=== PATIENT | male | born 1945 | race Caucasian/White ===

== ENCOUNTER 2018-07-23 00:23 | Inpatient (IN) | payer MEDICARE, OTHER, SELFPAY ==
[2018-07-23] VITALS (7 sets, daily range): BP systolic 117–125; BP diastolic 65–85; PULSE 69–95; RESP 16–20; TEMP 36.3–37.8; O2SAT 90–98; BMI 27.5
--- NOTE | 2018-07-23 00:35 | ED.ABDPAIN ---
HPI - Abdominal Pain General Chief Complaint: Abdominal Pain Stated Complaint: left side abdominal swelling Time Seen by Provider: 07/23/18 00:28 Source: patient and family Mode of arrival: ambulatory Limitations: no limitations History of Present Illness HPI narrative: 72-year-old male with extensive cardiac history presents with his in the chief complaint of gradually worsening left-sided abdominal pain and swelling over the course of the afternoon. He has nausea but no vomiting. He denies any history of the same. He does have a history of reflux and continues to take Motrin for arthritis. He denies any chest pain or shortness of breath. He is not dizzy nor weak or lightheaded. His last normal bowel movement was this morning and he continues to pass gas. MD complaint: abdominal pain Onset (ago): hour(s) Pain Consistency: constant Location: [facility] Severity: moderate Quality: cramping and aching Radiation: back Migration to: no migration Relieving factors: nothing Exacerbating factors: movement Associated symptoms: nausea Treatments prior to arrival: NSAIDs Related Data Home Medications Medication Instructions Recorded Confirmed atorvastatin 40 mg PO BEDTIME 07/23/18 07/23/18 Allergies Allergy/AdvReac Type Severity Reaction Status Date / Time fentanyl Allergy Verified 07/23/18 00:33 Review of Systems Review of Systems All systems reviewed & are unremarkable except as noted in HPI and below Constitutional Denies chills, Denies fever(s), Denies lethargy and Denies weakness Eyes Denies change in vision, Denies eye discharge, Denies irritation and Denies loss of vision ENT Ears, Nose, Mouth, and Throat: Denies change in voice, Denies neck pain and Denies sore throat Cardiovascular Denies chest pain, Denies irregular heart rhythm, Denies lightheadedness, Denies palpitations, Denies dyspnea, Denies dyspnea on exertion and Denies orthopnea Respiratory Denies cough, Denies dyspnea, Denies dyspnea on exertion and Denies wheezing Gastrointestinal Gastrointestinal: Reports abdominal pain, Reports bloating, Denies change in bowel habits, Denies diarrhea, Reports nausea and Denies vomiting Genitourinary Denies hematuria, Denies flank pain, Denies urinary incontinence and Denies urinary urgency Musculoskeletal Denies neck pain Integumentary/Breasts Denies pruritus, Denies erythema, Denies rash and Denies wounds Neurologic Denies confusion, Denies loss of vision and Denies weakness Psychiatric Denies anxiety, Denies confusion, Denies depression, Denies homicidal ideation and Denies suicidal ideation Endocrine Denies palpitations Hematologic/Lymphatic Denies easy bruising Allergic/Immunologic Denies wheezing [facility] Medical History Obstructive sleep apnea of adult (Chronic) Snoring (Chronic) Ischemic heart disease (Chronic) Exam Narrative Exam Narrative: GENERAL: 72-year-old male visibly anxious and obviously in pain HEAD: Atraumatic. Normocephalic. No temporal or scalp tenderness. EYES: Pupils equal round and reactive. Extraocular motions intact. No scleral icterus. No injection or drainage. ENT: Nose without bleeding, purulent drainage or septal hematoma. Throat without erythema, tonsillar hypertrophy or exudate. Uvula midline. Airway patent. NECK: Trachea midline. No JVD or lymphadenopathy. Supple, nontender, no meningeal signs. CARDIOVASCULAR: Regular rate and rhythm without murmurs, gallops, or rubs. RESPIRATORY: Clear to auscultation. Breath sounds equal bilaterally. No wheezes, rales, or rhonchi. GASTROINTESTINAL: Firm, tender abdomen most notably on the left side. EXTREMITIES: No clubbing, cyanosis, or edema. No joint tenderness, effusion, or edema noted. BACK: Nontender without deformity or crepitance. No flank tenderness. NEURO: AOx3. SKIN: No rash or erythema. Initial Vital Signs Initial Vital Signs: Vital Signs Pulse Rate 69 07/23/18 00:32 Respiratory Rate 18 07/23/18 00:32 Blood Pressure 125/85 07/23/18 00:32 Pulse Oximetry 98 07/23/18 00:32 Course Orders Ordered: ED Orders 07/23/18 00:50 XR acute abdomen series Stat 07/23/18 01:05 Complete Blood Count AUTO DIFF Stat Comprehensive Metabolic Panel Stat Lipase Stat Type and Screen Stat 07/23/18 01:47 XR chest 1V Stat Sodium Chloride (Normal Saline 0.9%) 1,000 mls @ 150 mls/hr IV CONT ELIEL Last Admin: 07/23/18 01:17 Dose: 150 mls/hr Discontinued Medications Hydromorphone HCl (Dilaudid) 0.5 mg IV NOW ONE Stop: 07/23/18 00:50 Last Admin: 07/23/18 01:16 Dose: 0.5 mg Ondansetron HCl (Zofran) 4 mg IV NOW ONE Stop: 07/23/18 00:50 Last Admin: 07/23/18 01:17 Dose: 4 mg Reevaluation(s) Reevaluation #1: NG placed - nearly 700mL out, patient feeling much better Consultations Consultation #1: Dr. Capone happy to admit Consultation #2: attempted call to , but straight to voicemail Vital Signs - 8 hr 07/23/18 00:32 Pulse Rate 69 Respiratory Rate 18 Blood Pressure 125/85 Pulse Oximetry 98 MDM - Abdominal Pain Differential Diagnosis Differential diagnosis: Likely abdominal pain Medical Records Attestation: I reviewed the patient's medical records. Lab Data Attestation: I reviewed the patient's lab results. Result diagrams: 07/23/18 01:05 07/23/18 01:05 Lab Results 07/23/18 07/23/18 07/23/18 Range/Units 01:05 01:05 01:05 WBC 6.2 (4.5-11.0) X10^3/uL RBC 5.85 (4.5-5.9) X10^6/uL Hgb 17.6 H (13.5-17.5) g/dL Hct 51.5 (41-53) % MCV 88.0 (80-100) fL MCH 30.1 (26-34) PG MCHC 34.3 (30-36) % RDW 12.7 (11.6-14.8) % Plt Count 208 (150-400) X10^3/uL Neut % (Auto) 66.8 (50-75) % Lymph % (Auto) 16.6 L (25-40) % [place] % (Auto) 10.9 (3-14) % Eos % (Auto) 4.7 H (2-4) % Baso % (Auto) 1.0 (0-2) % Neut # (Auto) 4100 (7010-5718) /uL Sodium 138 (137-145) mmol/L Potassium 3.9 (3.4-5.1) mmol/L Chloride 98 (98-107) mmol/L Carbon Dioxide 31 (22-32) mmol/L BUN 15 (9-20) mg/dL Creatinine 0.80 (0.66-1.25) mg/dL Estimated GFR > 60.0 (>60) mL/min BUN/Creatinine Ratio 18.8 (6-22) Glucose 120 H (80-110) mg/dL Calcium 9.8 (8.4-10.2) mg/dL Total Bilirubin 0.7 (0.2-1.3) mg/dL AST 43 (17-59) IU/L ALT 45 (21-72) IU/L Alkaline Phosphatase 62 (38-126) U/L Total Protein 8.2 (6.3-8.2) g/dL Albumin 4.5 (3.5-5.0) g/dL Globulin 3.7 (1.7-4.1) g/dL Albumin/Globulin Ratio 1.2 (1.0-2.8) Lipase 83 (23-300) U/L Blood Type O Positive Antibody Screen Negative Imaging Data Abdominal x-ray: My impression: SBO - air fluid levels, gaseous distension of stomach Discharge Plan Departure Patient Disposition: Admitted As Inpatient Clinical Impression: Partial small bowel obstruction Admit Date/Time: 07/23/18 01:47 Admit Provider: Eusebia Capone
--- NOTE | 2018-07-23 00:50 | DI.RAD.S_ITS ---
PROCEDURE: XR ACUTE ABDOMEN SERIES INDICATIONS: Abdominal pain, bloating, Nausea TECHNIQUE: One view chest and two views of the abdomen were acquired. COMPARISON: None. FINDINGS: Surgical changes and devices: Median sternotomy wires. Chest: Lungs are clear. Heart size is normal. No pleural effusions. No pneumoperitoneum. Abdomen: Multiple dilated loops of small bowel noted. Loops of small bowel are dilated up to 4 cm in diameter. Scattered air-fluid levels are noted. Several of the air fluid levels at differential height. No suspicious calcifications. Visualized solid organ contours appear normal. Bones: No suspicious bony lesions. IMPRESSION: Findings compatible with small bowel obstruction. Dictated by: Yin Chacon MD, PhD on 07/23/2018 at 9:04 Approved by: Yin Chacon MD, PhD on 07/23/2018 at 9:05
[2018-07-23] MEDS: HYDROMORPHONE 1 MG INJ 0.5 MG IV (01:16)
[2018-07-23] MEDS: SODIUM CHLORIDE 0.9% 1,000 ML 150 ML IV (01:17)
[2018-07-23] MEDS: ONDANSETRON 4 MG/2 ML INJ IV (01:17)
[2018-07-23 01:25] LABS: Add Manual Diff / Slide Review NO; Eosinophils Percent Auto 4.7 % (2-4); Hematocrit 51.5 % (41-53); Hemoglobin 17.6 g/dL (13.5-17.5); Lymphocytes Percent Auto 16.6 % (25-40); Mean Corpuscular HGB Conc 34.3 % (30-36); Mean Corpuscular Hemoglobin 30.1 PG (26-34); Monocytes Percent Auto 10.9 % (3-14); Neutrophils Absolute Auto 4100 /uL (1500-7000); Neutrophils Percent Auto 66.8 % (50-75); Platelet Count 208 X10^3/uL (150-400); Red Blood Cell Count 5.85 X10^6/uL (4.5-5.9); Red Cell Distribution Width 12.7 % (11.6-14.8); White Blood Cell Count 6.2 X10^3/uL (4.5-11.0)
--- NOTE | 2018-07-23 01:47 | DI.RAD.S_ITS ---
PROCEDURE: XR CHEST 1V INDICATIONS: NG Placement TECHNIQUE: One view of the chest was acquired. COMPARISON: None. FINDINGS: Surgical changes and devices: NG tube projects across the GE junction. Cholecystectomy clips. Lungs and pleura: No pleural effusions or pneumothorax. Lungs are clear. Mediastinum: Mediastinal contours appear normal. Heart size is normal. Bones and chest wall: No suspicious bony lesions. Overlying soft tissues appear unremarkable. The dilated loops of small bowel noted in the visualized abdomen compatible with small bowel obstruction. IMPRESSION: NG tube projects across the GE junction. Dictated by: Yin Chacon MD, PhD on 07/23/2018 at 9:05 Approved by: Yin Chacon MD, PhD on 07/23/2018 at 9:06
[2018-07-23 01:52] LABS: Alanine Aminotransferase 45 IU/L (21-72); Albumin 4.5 g/dL (3.5-5.0); Albumin Globulin Ratio 1.2 (1.0-2.8); Alkaline Phosphatase 62 U/L (38-126); Aspartate Aminotransferase 43 IU/L (17-59); BUN Creatinine Ratio 18.8 (6-22); Bilirubin Total 0.7 mg/dL (0.2-1.3); Blood Urea Nitrogen 15 mg/dL (9-20); Calcium 9.8 mg/dL (8.4-10.2); Carbon Dioxide 31 mmol/L (22-32); Chloride 98 mmol/L (98-107); Estimated Glomerular Filt Rate > 60.0 mL/min (>60); Globulin 3.7 g/dL (1.7-4.1); Glucose 120 mg/dL (80-110); HEMOLYSIS < 15 (0-50); Lipase 83 U/L (23-300); Potassium 3.9 mmol/L (3.4-5.1); Sodium 138 mmol/L (137-145); Total Protein 8.2 g/dL (6.3-8.2)
--- NOTE | 2018-07-23 02:19 | PC.NURSE ---
pt tolerated ng placment after 2 attempts. ng secured with nose tape and saftey pin to gown. 500ml of yellowish foamy fluid returned. NG advanced to 60cm wendi.
--- NOTE | 2018-07-23 02:21 | PC.NURSE ---
NS to continue in acute care.
[2018-07-23] MEDS: SODIUM CHLORIDE 0.9% 1,000 ML 125 ML IV ×3 (02:57→18:05)
[2018-07-23] MEDS: HYDROMORPHONE PCA 6 MG/30 ML PCA.VIAL IV ×2 (06:33→14:30)
--- NOTE | 2018-07-23 09:20 | CM.DANOTE ---
Discharge Planning/Care Management DCP: assessment: case received, EMR reviewed and met with pt and his Jane. Introduced self and role. Pt is a 72 year old male who admited early this mornin to care of [facility]. Only physician note currently available is ER report. Payer: Medicare and [employer]. Pt is found lying in bed, NG to suction in place and draining dark material. Pt and Jane are waiting to see Dr. Capone. At the moment pt's primary concern is his drivers license and insurance cards. He says he gave them to someone in admitting last night and was told copies needed to be made and scanned and that she would return them to him later. He never got the copies. His has talked with admitting and the card have not yet been located. JUDSON Calix is updated and is following up with ER staff as well as Admitting staff. Updates to follow. MAGALY Maurer is updated. CM Discharge Assessment Start: 07/23/18 09:13 Freq: Status: Active Protocol: Document 07/23/18 09:13 ITV (Rec: 07/23/18 09:20 ITV [id number]) Discharge Planning Assessment Advance Directives? Yes History Provided By Patient Family Member Prior Living Arrangements House Household Members spouse Whiteboard Updated in Patient Room with Yes name and ext. # of Photographic Reproduction Technician Review Status In Process Next Review Type Continued Stay Review
--- NOTE | 2018-07-23 11:29 | PC.NURSE ---
Pt denies pain but reports mild tenderness to abdm. NG tube in place in left nare emptying green gastric liquid. Pt's has expressed concern about his chronic GERD saying that he has not been in for an EGD. She strongly feels that he should have one to evaluate for possible problems with his esophagus and gastric ulcers independent of his current problem.
--- NOTE | 2018-07-23 13:27 | PC.NURSE ---
NG Tube d/c'd at approx. 13:[address] Capone. Pt. tollerated well. He has requested usman aubrey to drink and has been ok'd for clear liquids. Tele d/c'd.
--- NOTE | 2018-07-23 15:38 | P.HP_ITS ---
History of Present Illness Date Patient Seen: 07/23/18 Time Patient Seen: 12:32 Chief complaint: left side abdominal swelling Narrative: 72-year-old gentleman with an extensive cardiac history who presented to the emergency room with several hours of increasing left-sided abdominal distention and discomfort. He complained of nausea but no vomiting. He reports that he has had a cold for a week or so that he caught from his . He has had a low-grade temp at home and just generally has not felt well. He says it ?really set me back?. He denies any diarrhea. He was seen in the emergency room and had a CT scan suggestive of small-bowel obstruction. He was admitted to my service for care. Since his admission, he has passed an enormous amount of flatus. In fact, he has been passing flatus all night and all day yesterday. He reports no less than 20 episodes of flatus since he woke up this morning. He reports that his belly feels much better. He is quite thirsty and is complaining of sore throat. He has an NG tube in place that was put there in the emergency room last evening but has drained very little thick fluid. He denies any nausea currently. He has not had any nausea since being admitted to the hospital. Mr. Ibanez has had an appendectomy and cholecystectomy. He has also had a five-vessel coronary artery bypass procedure. He reports his last colonoscopy was about a year or year and half ago and was done at our facility. Patient History Medical History Obstructive sleep apnea of adult (Chronic) Snoring (Chronic) Ischemic heart disease (Chronic) Family & Social History Family History: Reviewed 07/23/18 by Eusebia Capone MD Social History: household members spouse Prior Living Arrangements House Safety & Behavioral: Feels Safe in Current Yes Environment Been Physically Hurt or No Threatened By a Person Suicidal Ideation Description None Tobacco & Substance use: Tobacco type cigars Smoking Status Current some day smoker alcohol intake current alcohol intake frequency 0-2 drinks per day Substance Use Type does not use Meds Home Medications Medication Instructions Recorded Confirmed Type atorvastatin 40 mg PO BEDTIME 07/23/18 07/23/18 History Allergies Allergy/AdvReac Type Severity Reaction Status Date / Time fentanyl Allergy Verified 07/23/18 00:33 Review of Systems Review of Systems All systems reviewed & are unremarkable except as noted in HPI and below Exam Vital Signs (past 8 hours): - 07/23/18 07:33 07/23/18 13:30 Temperature 99.5 F 100.1 F H Pulse Rate 91 H 90 Respiratory Rate 20 18 Blood Pressure 117/75 124/65 Pulse Oximetry 93 90 L Oxygen Delivery Method Room Air Oxygen Flow Rate 0 Narrative Exam Narrative: 72-year-old gentleman in no obvious distress. He reports he feels much better than he did at the time of admission. He is gargling salt water at the time of my examination due to a sore throat. HEENT: Normocephalic and atraumatic, pupils equal round reactive to light accommodation with anicteric sclera Lungs: Clear to auscultation bilaterally Heart: Regular rate and rhythm without murmur rub or gallop Abdomen: Soft, nontender even to deep palpation, active bowel sounds. Some tympany to percussion. No peritoneal signs. Well-healed abdominal incisions are noted. Extremities: Warm and well perfused. No evidence of peripheral edema. Objective Labs Result Diagrams: 07/23/18 01:05 07/23/18 01:05 Labs: Laboratory Results - last 24 hr 07/23/18 07/23/18 07/23/18 01:05 01:05 01:05 WBC 6.2 RBC 5.85 Hgb 17.6 H Hct 51.5 MCV 88.0 MCH 30.1 MCHC 34.3 RDW 12.7 Plt Count 208 Neut % (Auto) 66.8 Lymph % (Auto) 16.6 L [place] % (Auto) 10.9 Eos % (Auto) 4.7 H Baso % (Auto) 1.0 Neut # (Auto) 4100 Sodium 138 Potassium 3.9 Chloride 98 Carbon Dioxide 31 BUN 15 Creatinine 0.80 Estimated GFR > 60.0 BUN/Creatinine Ratio 18.8 Glucose 120 H Calcium 9.8 Total Bilirubin 0.7 AST 43 ALT 45 Alkaline Phosphatase 62 Total Protein 8.2 Albumin 4.5 Globulin 3.7 Albumin/Globulin Ratio 1.2 Lipase 83 Blood Type O Positive Antibody Screen Negative Assessment & Plan Plan: Assessment/Plan Narrative: 72-year-old gentleman with extensive cardiac history, and upper respiratory infection, and gaseous distension of his bowel. We will remove his NG tube and start a clear liquid diet. Analgesics for fever, sore throat, and upper respiratory symptoms. Likely advance his diet in the morning. Quality VTE Deep Vein Thrombosis/Pulmonary Embolism Present on Admission: No
[2018-07-23] MEDS: ATORVASTATIN 20 MG TABLET 40 MG PO (21:09)
--- NOTE | 2018-07-24 | DI.RAD.S_ITS ---
PROCEDURE: XR ACUTE ABDOMEN SERIES INDICATIONS: Bowel obstruction TECHNIQUE: One view chest and two views of the abdomen were acquired. COMPARISON: [facility], , XR ACUTE ABDOMEN SERIES, 07/23/2018, 0:53. FINDINGS: Surgical changes and devices: Sternotomy wires and surgical clips projecting in the upper abdomen Chest: Lungs are clear. Heart size is normal. No pleural effusions. No pneumoperitoneum. Abdomen: Mildly prominent small bowel loops measuring up to 3.4 cm although no definite transition point and there is gas within the rectal vault. Bones: No suspicious bony lesions. Mild bilateral hip degeneration IMPRESSION: No definite bowel obstruction although prominent left-sided small bowel loops remain. Overall the appearance is improved since yesterday. Dictated by: Michael Jacques M.D. on 07/24/2018 at 9:07 Approved by: Michael Jacques M.D. on 07/24/2018 at 9:09
[2018-07-24 00:35] VITALS: BP 107/56; PULSE 91; RESP 16; TEMP 36.9; O2SAT 92
[2018-07-24 05:56] LABS: Add Manual Diff / Slide Review NO; Basophils Percent Auto 0.5 % (0-2); Eosinophils Percent Auto 7.9 % (2-4); Hematocrit 44.3 % (41-53); Hemoglobin 15.1 g/dL (13.5-17.5); Lymphocytes Percent Auto 26.8 % (25-40); Mean Corpuscular Hemoglobin 30.1 PG (26-34); Mean Corpuscular Volume 88.5 fL (80-100); Monocytes Percent Auto 13.6 % (3-14); Neutrophils Absolute Auto 2200 /uL (1500-7000); Neutrophils Percent Auto 51.2 % (50-75); Platelet Count 176 X10^3/uL (150-400); Red Blood Cell Count 5.01 X10^6/uL (4.5-5.9); Red Cell Distribution Width 12.8 % (11.6-14.8); White Blood Cell Count 4.4 X10^3/uL (4.5-11.0)
[2018-07-24 06:00] VITALS: BP 132/65; PULSE 77; RESP 18; TEMP 36.6; O2SAT 94
[2018-07-24 06:00] LABS: BUN Creatinine Ratio 12.5 (6-22); Blood Urea Nitrogen 10 mg/dL (9-20); Calcium 8.5 mg/dL (8.4-10.2); Carbon Dioxide 31 mmol/L (22-32); Chloride 99 mmol/L (98-107); Estimated Glomerular Filt Rate > 60.0 mL/min (>60); Glucose 94 mg/dL (80-110); HEMOLYSIS < 15 (0-50); Potassium 4.1 mmol/L (3.4-5.1); Sodium 136 mmol/L (137-145)
[2018-07-24] MEDS: SODIUM CHLORIDE 0.9% 1,000 ML 75 ML IV (06:13)
[2018-07-24 08:59] VITALS: BP 123/72; PULSE 86; RESP 18; TEMP 36.7; O2SAT 96
--- NOTE | 2018-07-24 11:19 | PC.NURSE ---
Pt reports that he had a BM last night. This morning he c/o itchy skin to his back where he has a red papular rash. It appears to be possibly heat rash related or a viral rash possibly r/t to his head cold.
[2018-07-24] MEDS: INFLUENZA VACCINE 0.5 ML SYRINGE IM (11:42)
[2018-07-24 12:06] VITALS: BP 125/73; PULSE 85; RESP 16; O2SAT 94
--- NOTE | 2018-07-24 12:12 | PM.DS.1 ---
History of Present Illness Chief complaint: left side abdominal swelling Narrative: 72-year-old gentleman with an extensive cardiac history who presented to the emergency room with several hours of increasing left-sided abdominal distention and discomfort. He complained of nausea but no vomiting. He reports that he has had a cold for a week or so that he caught from his . He has had a low-grade temp at home and just generally has not felt well. He says it ?really set me back?. He denies any diarrhea. He was seen in the emergency room and had a CT scan suggestive of small-bowel obstruction. He was admitted to my service for care. Since his admission, he has passed an enormous amount of flatus. In fact, he has been passing flatus all night and all day yesterday. He reports no less than 20 episodes of flatus since he woke up this morning. He reports that his belly feels much better. He is quite thirsty and is complaining of sore throat. He has an NG tube in place that was put there in the emergency room last evening but has drained very little thick fluid. He denies any nausea currently. He has not had any nausea since being admitted to the hospital. Mr. Ibanez has had an appendectomy and cholecystectomy. He has also had a five-vessel coronary artery bypass procedure. He reports his last colonoscopy was about a year or year and half ago and was done at our facility. Discharge Providers Date of admission: 07/23/18 01:47 Discharge provider: Eusebia Capone MD Discharge Date: 07/24/18 Summary Discharge Diagnosis: Viral enteritis Hospital Course: Mr. Ibanez was admitted to the acute care floor and began to improve almost immediately. He developed a sore throat on the 1st day after admission but that has since resolved. He was noted to have low-grade temp but that has also resolved. Currently he is eating regular diet, he has normal bowel function, and he denies any discomfort. He has developed a macular rash covering his back that is most consistent with viral infection. He will be discharged to his home in the care of his family with prescriptions for Atarax and Benadryl cream. He can follow up with his primary care physician. Status at Discharge Cognitive/behavioral status at discharge: Normal Functional status at discharge: independent ambulation Overall status at discharge: patient is back to baseline Time Spent with Patient Less than 30 minutes Exam Vital Signs (past 8 hours): - 07/24/18 06:00 07/24/18 08:59 07/24/18 12:06 Temperature 97.8 F 98.0 F Pulse Rate 77 86 85 Respiratory Rate 18 18 16 Blood Pressure 132/65 123/72 125/73 Pulse Oximetry 94 96 94 Oxygen Delivery Method Room Air Oxygen Flow Rate 0 Objective Labs Result Diagrams: 07/24/18 05:35 07/24/18 05:35 Labs: Laboratory Results - last 24 hr 07/24/18 07/24/18 05:35 05:35 WBC 4.4 L RBC 5.01 Hgb 15.1 Hct 44.3 MCV 88.5 MCH 30.1 MCHC 34.0 RDW 12.8 Plt Count 176 Neut % (Auto) 51.2 Lymph % (Auto) 26.8 [place] % (Auto) 13.6 Eos % (Auto) 7.9 H Baso % (Auto) 0.5 Neut # (Auto) 2200 Sodium 136 L Potassium 4.1 Chloride 99 Carbon Dioxide 31 BUN 10 Creatinine 0.80 Estimated GFR > 60.0 BUN/Creatinine Ratio 12.5 Glucose 94 Calcium 8.5 Discharge Plan Discharge Plan Patient Disposition: Home Discharge Med Rec/Prescriptions Prescriptions: New hydroxyzine pamoate 50 mg capsule 50 mg PO QID PRN (Reason: itching) Qty: 30 RF: 0 diphenhydramine-zinc acetate [Benadryl Extra Strength] 2-0.1 % cream 1 applictn TOP QID Qty: 35 RF: 0 hydroxyzine pamoate 50 mg capsule 50 mg PO QID PRN (Reason: itching) Qty: 30 RF: 0 diphenhydramine-zinc acetate [Benadryl Itch Cooling] 2-0.1 % aerosol,spray 1 spray TOP QID PRN (Reason: skin irritation) Qty: 59 RF: 0 Continue atorvastatin 40 mg Tablet 40 mg PO BEDTIME RF: 0 Provider Discharge Instructions Diet: Diet as Tolerated Visit Report/Discharge Packet Instructions: Small Bowel Obstruction, DI for Heart Failure Visit Report Forms: Congestive Heart Failure, Stroke Signs & Symptoms Discharge Data Attending Provider: Eusebia Capone Admit Date/Time: 07/23/18 01:47 Discharges patient from system. Discharge Date/Time: 07/24/18 13:43 Quality VTE Deep Vein Thrombosis/Pulmonary Embolism Present on Admission: No
== END 2018-07-24 13:43 | disposition home or self-care (01) | DRG 392 ==
LOC: ED 01:37 → AC 01:48
PROVIDERS: Admitting Provider Surgery; Emergency Provider Emergency Medicine; Visit Provider Surgery
DX: A08.4 Viral intestinal infection, unspecified (principal); J06.9 Acute upper respiratory infection, unspecified; G47.33 Obstructive sleep apnea (adult) (pediatric); I25.10 Atherosclerotic heart disease of native coronary artery without angina pectoris; F17.200 Nicotine dependence, unspecified, uncomplicated
CPT/HCPCS: 36415; 36591; 71045; 74022; 80048; 80053; 83690; 85025; 86850; 86900; 86901; 90471; 90656; 94762; 96361; 96374; 96375; 99222; 99238; 99283; 99284; J1170; J2405; Q2038

== ENCOUNTER → 2018-09-17 07:36 | Outpatient (CLI) | payer MEDICARE, OTHER, SELFPAY ==
[2018-07-23 02:36] VITALS: BMI 27.5
--- NOTE | 2018-09-17 | DI.CT.S_ITS ---
PROCEDURE: CT ABDOMEN PELVIS W CON INDICATIONS: LEFT LOWER QUADRANT PAIN x 3 MONTHS TECHNIQUE: After the administration of oral and intravenous contrast, 5 mm thick sections acquired from the diaphragms to the symphysis. 5 mm thick coronal and sagittal reformats were performed. For radiation dose reduction, the following was used: automated exposure control, adjustment of mA and/or kV according to patient size. COMPARISON: None. FINDINGS: Image quality: Excellent. ABDOMEN: Lung bases: Lung bases are clear. Heart size is normal. There is calcification of the coronary vasculature. Solid organs: Liver is normal in size and enhancement. Gallbladder is surgically absent. Biliary system is non-dilated. Pancreas enhances normally. Spleen is normal in size and enhancement. No adrenal nodules. Kidneys are normal in size and enhancement, without hydronephrosis. Peritoneum and bowel: Stomach, small bowel, and colon loops are normal in caliber and wall thickness. No free fluid or air. Nodes and vessels: No retroperitoneal or mesenteric adenopathy. IVC is within normal limits. There is mild infrarenal abdominal aortic aneurysmal dilatation measuring 31 mm. There is aneurysmal dilatation of the left internal iliac artery measuring 17 mm. Miscellaneous: No ventral hernias. PELVIS: Genitourinary: The urinary bladder is decompressed. Miscellaneous: No inguinal hernias or adenopathy. Bones: No suspicious bony lesions. No vertebral body compression fractures. IMPRESSION: 1. No acute process. 2. Coronary artery disease. 3. Mild aneurysmal dilatation of the abdominal aorta; annual sonographic surveillance is recommended. 4. 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 Dictated by: Regla Martinez M.D. on 09/17/2018 at 9:59 Approved by: Regla Martinez M.D. on 09/17/2018 at 10:03
== END ==
PROVIDERS: PCP Family Medicine; Visit Provider Family Medicine
DX: R10.32 Left lower quadrant pain (principal); I71.4 Abdominal aortic aneurysm, without rupture; I72.3 Aneurysm of iliac artery; I25.10 Atherosclerotic heart disease of native coronary artery without angina pectoris; Z95.1 Presence of aortocoronary bypass graft
CPT/HCPCS: 74177; Q9967

== ENCOUNTER 2018-11-09 13:25 | Emergency (ER) | payer MEDICARE, OTHER, SELFPAY ==
[2018-07-23 02:36] VITALS: BMI 27.5
[2018-11-09 13:45] VITALS: BP 99/70; PULSE 86; RESP 18; TEMP 36.6; O2SAT 94; BMI 26.9
--- NOTE | 2018-11-09 13:59 | ED_ITS ---
HPI - Skin/Abscess/Foreign Bdy <VENKATESH Knight - Last Filed: 11/09/18 14:28> General Chief complaint: Skin/Abscess/Foreign Body Stated complaint: Thinks he has shingles Time Seen by Provider: 11/09/18 13:53 Source: patient Mode of arrival: ambulatory Limitations: no limitations History of Present Illness HPI narrative: rash started suddenly about 2 days ago, only one side of his ches t, it miller and tingles, had chickenpox as child and thinks the rash is shingles complaint: rash Onset (ago): day(s) (2) Location: chest (R side) Severity: mild Quality: burning Pain Consistency: constant Relieving factors: none Exacerbating factors: none Associated symptoms: denies other symptoms Treatments prior to arrival: none Related Data Home Medications Medication Instructions Recorded Confirmed atorvastatin 40 mg PO BEDTIME 07/23/18 07/23/18 Previous Rx's Medication Instructions Recorded diphenhydramine-zinc acetate 1 applictn TOP QID #35 gram 07/24/18 [Benadryl Extra Strength] diphenhydramine-zinc acetate 1 spray TOP QID PRN #59 ml 07/24/18 [Benadryl Itch Cooling] hydroxyzine pamoate 50 mg PO QID PRN #30 cap 07/24/18 hydroxyzine pamoate 50 mg PO QID PRN #30 cap 07/24/18 acyclovir 800 mg PO 5XD #30 tab 11/09/18 ibuprofen 800 mg PO TID PRN #20 tab 11/09/18 Allergies Allergy/AdvReac Type Severity Reaction Status Date / Time fentanyl Allergy Insomnia Verified 11/09/18 13:51 Review of Systems <VENKATESH Knight - Last Filed: 11/09/18 14:28> Review of Systems ROS Unobtainable: All systems reviewed & are unremarkable except as noted in HPI and below Constitutional Reports as per HPI Eyes Denies eye discharge, Denies irritation and Denies itchy eyes ENT Ears, Nose, Mouth, and Throat: Denies nasal congestion, Denies nasal discharge and Denies neck pain Cardiovascular Denies dyspnea Respiratory Denies dyspnea Musculoskeletal Denies abnormal gait, Denies back pain, Denies myalgias, Denies arthralgias, Denies muscle weakness and Denies neck pain Integumentary/Breasts Reports as per HPI and Reports rash Neurologic Denies abnormal gait Allergic/Immunologic Denies itchy eyes PFSH <VENKATESH Knight - Last Filed: 11/09/18 14:28> Medical History Obstructive sleep apnea of adult (Chronic) Snoring (Chronic) Ischemic heart disease (Chronic) Social History household members: spouse Smoking Status: Current some day smoker alcohol intake: current Social History household members: spouse Smoking Status: Current some day smoker alcohol intake: current Exam <VENKATESH Knight - Last Filed: 11/09/18 14:28> Initial Vital Signs Initial Vital Signs: Vital Signs Temperature 97.8 F 11/09/18 13:45 Pulse Rate 86 11/09/18 13:45 Respiratory Rate 18 11/09/18 13:45 Blood Pressure 99/70 11/09/18 13:45 Pulse Oximetry 94 11/09/18 13:45 Const General: cooperative, healthy appearing, comfortable, well developed and well groomed Orientation: alert, awake and oriented x3 HENMT Head: normal to inspection and normocephalic Ears: hearing grossly normal bilaterally Nose: external nose normal Face and sinus: normal facial exam Eyes General: appearance normal, both eyes and all related structures Visual Milner: normal visual milner by confrontation Eyelids: eyelids normal Pupils: PERRL Neck Neck: normal visual inspection, full ROM and trachea midline Resp Effort & Inspection: normal respiratory effort and able to speak in complete sentences Auscultation: clear to auscultation bilaterally Cardio Rate: regular rate Rhythm: regular rhythm Heart Sounds: S1 normal and S2 normal Back/Spine/Pelvis Back: normal to inspection Cervical Spine: cervical ROM normal Thoracic/Lumbar Spine: thoraco-lumbar ROM normal Skin General: no rashes or lesions noted, elasticity normal and turgor normal Rashes: rashes noted (R side of upper chest along sternum, erythema, vesicles, unilateral) Neuro General: alert, awake and oriented x3 Cranial Nerves: CN's II-XI intact bilaterally Cognition: normal cognition Speech: speech normal Motor: muscle tone normal throughout Sensory Exam: no sensory deficits noted Extrem General: normal to inspection, full ROM, capillary refill normal and limp Right upper extremity: normal to inspection and full ROM Left upper extremity: normal to inspection and full ROM Right lower extremity: normal to inspection and full ROM Left lower extremity: normal to inspection and full ROM Psych Appearance: grossly normal and well kempt Mental Status: mental status grossly normal Mood: congruent mood Affect: normal affect Attitude: cooperative Thought Process: normal Thought Content: normal Judgment: judgment good <Nahed Monteiro DO - Last Filed: 11/09/18 19:22> Initial Vital Signs Initial Vital Signs: Vital Signs Temperature 97.8 F 11/09/18 13:45 Pulse Rate 86 11/09/18 13:45 Respiratory Rate 18 11/09/18 13:45 Blood Pressure 99/70 11/09/18 13:45 Pulse Oximetry 94 11/09/18 13:45 Course <VENKATESH Knight - Last Filed: 11/09/18 14:28> Vital Signs - 8 hr 11/09/18 13:45 Temperature 97.8 F Pulse Rate 86 Respiratory Rate 18 Blood Pressure 99/70 Pulse Oximetry 94 <Nahed Monteiro DO - Last Filed: 11/09/18 19:22> Vital Signs - 8 hr 11/09/18 13:45 Temperature 97.8 F Pulse Rate 86 Respiratory Rate 18 Blood Pressure 99/70 Pulse Oximetry 94 MDM - Skin/Abscess/Foreign Bdy <VENKATESH Knight - Last Filed: 11/09/18 14:28> Differential Diagnosis Likely abscess of skin or subcutaneous tissue, viral exanthem, urticaria, herpes zoster, allergic reaction to drug, cellulitis, eczema, insect bites, impetigo and contact dermatitis Discharge Plan Departure Patient Disposition: Home Clinical Impression: Shingles Qualifiers: Herpes zoster complications: without complications Qualified Code(s): B02.9 - Zoster without complications Discharge Date/Time: 11/09/18 14:13 Interventions: ED Discharge Assessment Last Done: 11/09/18 14:11 Instructions: Shingles, DI for Shingles Prescriptions: New ibuprofen 800 mg tablet 800 mg PO TID PRN (Reason: pain) Qty: 20 RF: 0 acyclovir 800 mg tablet 800 mg PO 5XD Qty: 30 RF: 0 No Action atorvastatin 40 mg Tablet 40 mg PO BEDTIME RF: 0 hydroxyzine pamoate 50 mg capsule 50 mg PO QID PRN (Reason: itching) Qty: 30 RF: 0 diphenhydramine-zinc acetate [Benadryl Extra Strength] 2-0.1 % cream 1 applictn TOP QID Qty: 35 RF: 0 hydroxyzine pamoate 50 mg capsule 50 mg PO QID PRN (Reason: itching) Qty: 30 RF: 0 diphenhydramine-zinc acetate [Benadryl Itch Cooling] 2-0.1 % aerosol,spray 1 spray TOP QID PRN (Reason: skin irritation) Qty: 59 RF: 0 Referrals: Jef Skelton MD [Primary Care Provider] - (follow up in 3-5 days for recheck) <Nahed Monteiro DO - Last Filed: 11/09/18 19:22> Cosign ED Attending Cosignature Attestation: I was immediately available in the department for consultation. This documentation has been reviewed and I agree with assessment and plan. Supervised by Nahed Monteiro DO
== END 2018-11-09 14:13 | disposition home or self-care (01) ==
PROVIDERS: Emergency Provider Nurse Practitioner; PCP Family Medicine
DX: B02.9 Zoster without complications (principal)
CPT/HCPCS: 99282; 99283

== ENCOUNTER 2019-03-02 10:19 | Emergency (ER) | payer MEDICARE, OTHER, SELFPAY ==
[2018-07-23 02:36] VITALS: BMI 27.5
[2019-03-02] VITALS (9 sets, daily range): BP systolic 108–131; BP diastolic 61–76; PULSE 68–81; RESP 17–19; TEMP 36.6; O2SAT 94–97
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
[2019-03-02 11:20] LABS: Add Manual Diff / Slide Review NO; Basophils Absolute Auto 0 /uL (0-100); Basophils Percent Auto 0.7 % (0-2); Eosinophils Absolute Auto 100 /uL (0-450); Hematocrit 49.1 % (41-53); Hemoglobin 16.7 g/dL (13.5-17.5); Lymphocytes Absolute Auto 900 /uL (1100-4500); Lymphocytes Percent Auto 20.5 % (25-40); Mean Corpuscular Hemoglobin 30.2 PG (26-34); Mean Corpuscular Volume 88.7 fL (80-100); Monocytes Absolute Auto 400 /uL (0-900); Neutrophils Absolute Auto 3100 /uL (1500-7000); Neutrophils Percent Auto 67.8 % (50-75); Platelet Count 267 X10^3/uL (150-400); Red Blood Cell Count 5.53 X10^6/uL (4.5-5.9); White Blood Cell Count 4.6 X10^3/uL (4.5-11.0)
--- NOTE | 2019-03-02 11:22 | DI.CT.S_ITS ---
PROCEDURE: CT HEAD/BRAIN WO CON INDICATIONS: tia TECHNIQUE: Noncontrast 4.5 mm thick angled axial sections acquired from the foramen magnum to the vertex, with coronal and sagittal reformats. For radiation dose reduction, the following was used: automated exposure control, adjustment of mA and/or kV according to patient size. COMPARISON: None. FINDINGS: Image quality: Excellent. CSF spaces: Basal cisterns are patent. No extra-axial fluid collections. The ventricles are symmetric in size and shape. Brain: No intracranial bleeds or masses. There is cerebral volume loss for age, with resultant ventricular and sulcal prominence. There are periventricular and deep white matter chronic small vessel ischemic changes. There is intracranial internal carotid artery atherosclerosis. Skull and face: Calvarium and visualized facial bones appear intact, without suspicious lesions. Sinuses: Visualized sinuses and mastoids are clear. IMPRESSION: Unremarkable noncontrast head CT for age. If there is strong clinical suspicion for an acute stroke, please consider an MRI for further evaluation, as it is more sensitive (assuming that there is no contraindication to MRI). Dictated by: Tu Yen M.D. on 03/02/2019 at 10:32 Approved by: Tu Yen M.D. on 03/02/2019 at 10:33
[2019-03-02 11:26] LABS: Alanine Aminotransferase 32 IU/L (21-72); Albumin 4.2 g/dL (3.5-5.0); Albumin Globulin Ratio 1.3 (1.0-2.8); Alkaline Phosphatase 49 U/L (38-126); Aspartate Aminotransferase 35 IU/L (17-59); Bilirubin Total 0.7 mg/dL (0.2-1.3); Blood Urea Nitrogen 14 mg/dL (9-20); Calcium 9.3 mg/dL (8.4-10.2); Carbon Dioxide 29 mmol/L (22-32); Chloride 99 mmol/L (98-107); Estimated Glomerular Filt Rate > 60.0 mL/min (>60); Globulin 3.3 g/dL (1.7-4.1); Glucose 128 mg/dL (80-110); HEMOLYSIS 34 (0-50); Potassium 4.2 mmol/L (3.4-5.1); Sodium 137 mmol/L (137-145); Total Protein 7.5 g/dL (6.3-8.2)
[2019-03-02] MEDS: SODIUM CHLORIDE 0.9% 1,000 ML 1000 ML IV (11:32)
--- NOTE | 2019-03-02 12:22 | DI.ECHO.S_ITS ---
[facility] +---------+ : : [address] : : : : [place] : : : : [id number] : : : : Phone: [phone] : : [phone]+ Echocardiogram Report + + :Name: KRISSY MAN Study Date: 03/02/2019 Height: 69 in : :[facility] Weight: 180 lb: : Gender: Male BSA: 2.0 m2 : :: 1945 Age: 73 yrs BP: 90/58 mmHg: :Reason For Study: TIA : : Performed By: Goldie Segovia : :Referring: OLEG DELVALLE : + + Interpretation Summary Mid to basal anteroseptal hypokinesis. Septal motion is consistent with conduction abnormality. Left ventricular ejection fraction is estimated to be 45 +/- 5%. Borderline right ventricular enlargement. Right ventricular systolic function is borderline reduced. There is mild aortic regurgitation. There is mild aortic valve sclerosis. Procedure: A two-dimensional transthoracic echocardiogram with color flow and Doppler was performed. The study quality was technically adequate. There is no prior echocardiogram noted for this patient. The patient was in normal sinus rhythm during the exam. Left Ventricle: The left ventricle is normal in size, wall thickness, and systolic function without any focal wall motion abnormalities. Left ventricular ejection fraction is estimated to be 45 +/- 5%. Mid to basal anteroseptal hypokinesis. Septal motion is consistent with conduction abnormality. Right Ventricle: Borderline right ventricular enlargement. Right ventricular systolic function is borderline reduced. Atria: Borderline left atrial enlargement. The right atrium is mildly dilated. Injection of contrast documented no interatrial shunt. Mitral Valve: The mitral valve is normal in structure and function. There is no mitral regurgitation noted. Aortic Valve: The aortic valve is trileaflet. The aortic valve opens well. There is mild aortic valve sclerosis. There is mild aortic regurgitation. Tricuspid Valve: The tricuspid valve is normal in structure and function. There is a trace or physiologic amount of tricuspid regurgitation. Pulmonic Valve: The pulmonic valve is not well seen, but is grossly normal. There is trace pulmonic regurgitation. Great Vessels: The aortic root is mildly dilated. The dimensions of the ascending aorta are normal. The aortic arch could not be visualized. Pericardium/ Pleura There is no pericardial effusion. There is no pleural effusion. MMode/2D Measurements & Calculations LVIDd: 4.9 cm Ao root diam: 3.9 cm LVIDs: 3.3 cm Aortic Jxn: 3.1 cm FS: 31.3 % asc Aorta Diam: 2.8 cm EPSS: 1.0 cm IVSd: 1.1 cm LVPWd: 0.81 cm LV bryan. diameter/BSA (cm/m^2): 2.5 LV sys. diameter/BSA (cm/m^2): 1.7 LA dimension: 5.2 cm RA long axis: 5.3 cm LA A2 area: 20.0 cm2 RA area: 21.3 cm2 LA A4 area: 18.4 cm2 RA vol: 73.6 ml LA length (vol): 5.1 cm RA : 37.2 ml/m2 LA vol: 61.6 ml RVDd major: 6.2 cm LA vol index: 31.2 ml/m2 RVD1 (basal): 3.4 cm RVD2 (mid): 3.4 cm TYLER (plan): 1.8 cm2 Doppler Measurements & Calculations Ao V2 max: 130.9 cm/sec AI P1/2t: 818.3 msec Ao V2 mean: 87.3 cm/sec AI dec slope: 124.9 cm/sec2 Ao max P.9 mmHg Ao mean P.4 mmHg Ao V2 VTI: 25.7 cm MV E max taras: 53.7 cm/sec PA V2 max: 78.9 cm/sec MV A max taras: 60.5 cm/sec PA V2 mean: 48.7 cm/sec MV E/A: 0.89 PA mean P.2 mmHg Med Peak E' Taras: 5.6 cm/sec PA Accel Time: 0.11 sec E/E' med: 9.6 Lat Peak E' Taras: 9.6 cm/sec E/E' lat: 5.6 E/e' average: 7.6 MV dec time: 0.25 sec MV P1/2t: 74.2 msec MV P1/2t max taras: 54.0 cm/sec MVA(P1/2t): 3.0 cm2 Reading Physician:01:09 PM
--- NOTE | 2019-03-02 12:45 | DI.CT.S_ITS ---
PROCEDURE: CT ANGIO HEAD AND NECK INDICATIONS: tia TECHNIQUE: Pre-contrast 4.5 mm thick sections acquired from the foramen magnum to the vertex. After the administration of intravenous contrast, 1 mm thick sections acquired from the aortic arch through the [place]. Post-contrast 4.5 mm thick sections then re-acquired from the foramen magnum to the vertex. 3-dimensional [id number] (MIP) and/or volume rendering reformats were acquired of the central intracranial vasculature and neck separately. COMPARISON: [facility], CT, CT HEAD/BRAIN WO CON, 03/02/2019, 11:16. FINDINGS: Image quality: Excellent. BRAIN: CSF spaces: Ventricles are normal in size and shape. Basal cisterns are patent. No extra-axial fluid collections. Brain: No midline shift. No intracranial bleeds or masses. Deleon-white matter interface appears intact. Moderate periventricular hypodensities are consistent with moderate small vessel ischemic change. No enhancing masses. Skull and face: Calvarium and facial bones appear intact, without suspicious lesions. Orbits appear normal. Sinuses: Sinuses and mastoids are clear. HEAD CT ANGIOGRAPHY: Anterior circulation: Intracranial internal carotid arteries are normal in size and flow. The flow within the paired anterior cerebral arteries is normal and symmetric. The flow within the middle cerebral arteries is normal and symmetric. The anterior communicating artery is seen. No aneurysms are seen. Posterior circulation: There are severe stenoses of the distal aspect of the vertebral arteries bilaterally. The vertebral arteries join to form a normal appearing basilar artery. Flow within the posterior cerebral arteries is normal and symmetric. No aneurysms are seen. NECK CT ANGIOGRAPHY: There is normal variant bovine arch anatomy, in which the left common carotid artery arises off the brachycephalic artery. The brachiocephalic and left common carotid origins are widely patent. The left carotid bifurcation region/proximal internal carotid has calcified plaque in a less than 50% stenosis. The right carotid bifurcation/proximal right internal carotid artery also has calcified plaque with a less than 50% stenosis. There is either a chronic occlusion or high-grade stenosis of the proximal left subclavian artery, prior to the takeoff of the left vertebral artery. There is atherosclerotic calcification involving the origin of the left vertebral artery. Above the proximal stenosis the left vertebral artery is widely patent until the distal vertebral arteries, where there is a severe stenosis. There is a calcified severe distal right vertebral artery stenosis. The basilar artery is widely patent. Soft tissues: Visualized neck soft tissues demonstrate no suspicious abnormalities. Bones: No suspicious bony lesions. Visualized cervical spine appears normally aligned. IMPRESSION: 1. 1. Age related volume loss and moderate small vessel ischemic change. 2. No evidence acute stroke, hemorrhage, or mass. 3. 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 Question: Does this patient have posterior fossa symptoms or left arm symptoms? 4. Bilateral severe distal vertebral artery stenoses, consistent with vertebrobasilar insufficiency. 5. Bilateral less than 50% carotid bifurcation/proximal internal carotid artery stenoses. Comment: Findings were discussed with Dr. José at the time of study dictation on 03/02/19 at 1342 hrs.. Any quantitative measurements of stenosis were performed using NASCET criteria. Dictated by: Miles Benedict M.D. on 03/02/2019 at 13:28 Approved by: Miles Benedict M.D. on 03/02/2019 at 13:45
--- NOTE | 2019-03-02 15:23 | PC.NURSE ---
Pt stable we're just waiting for time spot for ECHO at 4pm.
== END 2019-03-02 17:52 | disposition home or self-care (01) ==
PROVIDERS: Emergency Provider Emergency Medicine; PCP Family Medicine
DX: G45.8 Other transient cerebral ischemic attacks and related syndromes (principal)
CPT/HCPCS: 70450; 70496; 70498; 80053; 85025; 93306; 96360; 96361; 99284; 99285; Q9967

== ENCOUNTER → 2019-07-30 08:05 | Outpatient (CLI) | payer MEDICARE, OTHER, SELFPAY ==
[2018-07-23 02:36] VITALS: BMI 27.5
--- NOTE | 2019-07-30 | DI.MRI.S_ITS ---
PROCEDURE: MR SHOULDER RT WO CON INDICATIONS: RIGHT SHOULDER PAIN TECHNIQUE: Noncontrast oblique coronal T2 fast spin echo with fat saturation, oblique sagittal T1 spin echo and T2 fast spin echo with fat saturation, axial T1 spin echo and T2 fast spin echo with fat saturation through the shoulder. COMPARISON: None. FINDINGS: Image quality: Diagnostic. Rotator cuff: No full-thickness or high-grade partial-thickness tear of the rotator cuff is present. There is low-grade intrasubstance partial thickness tearing of the distal supraspinatus tendon with corresponding mild tendinopathy. The infraspinatus and subscapularis tendons are within normal limits. The teres minor tendon is intact. No significant atrophy of the rotator cuff muscles is evident. Bones and bursae: No acute fracture, dislocation, or suspicious osseous lesion is evident involving the osseous structures of the right shoulder. There is a small glenohumeral joint effusion. There are mild degenerative changes of the glenohumeral joint. Moderate to severe degenerative changes of the acromioclavicular joint are present with reactive marrow edema and undersurface osteophytes. A large amount of fluid is contained within the subacromial subdeltoid bursa. Capsule and soft tissues: Evaluation of the labrum and glenohumeral ligaments is suboptimal without intra-articular contrast. However, posterior subluxation of the humeral head is evident with increased signal identified paralleling the glenoid fossa along the posterosuperior aspect of the labral cartilaginous junction. This is felt to represent a tear that extends from at least the 12 o'clock position to the 4 o'clock position of the posterior labrum. The long head of the biceps tendon is normally positioned within the bicipital groove. There is thickening and increased signal involving the intra-articular portion of this tendon, best appreciated at the biceps anchor. No acute injuries are suspected involving the glenohumeral ligaments. There is increased signal evident involving anterolateral deltoid muscle and the trapezius muscle at its lateral insertion. IMPRESSION: 1. Low-grade intrasubstance partial thickness tearing and tendinopathy of the distal supraspinatus tendon. No full-thickness rotator cuff tear. 2. Small to moderate-sized posterosuperior labral tear with probable extension into the biceps anchor. 3. Kpbe-ks-iddjjzwd tendinopathy involving the intra-articular portion of the biceps tendon. 4. Moderate to severe degenerative changes of the acromioclavicular joint with a large amount of fluid contained within the subacromial subdeltoid bursa. Please correlate clinically to exclude the possibility of subacromial impingement and/or subacromial subdeltoid bursitis. 5. Edema involving the deltoid and trapezius muscles is suspicious of muscle strains. Dictated by: Lion Zimmerman M.D. on 07/30/2019 at 10:22 Approved by: Lion Zimmerman M.D. on 07/30/2019 at 10:30
== END ==
PROVIDERS: PCP Family Medicine; Visit Provider Family Medicine
DX: M25.511 Pain in right shoulder (principal); M75.111 Incomplete rotator cuff tear or rupture of right shoulder, not specified as traumatic; S43.431A Superior glenoid labrum lesion of right shoulder, initial encounter
CPT/HCPCS: 73221

== ENCOUNTER → 2019-12-23 09:25 | Outpatient (CLI) | payer MEDICARE, OTHER, SELFPAY ==
[2018-07-23 02:36] VITALS: BMI 27.5
--- NOTE | 2019-12-23 | DI.US.S_ITS ---
PROCEDURE: US ABDOMEN COMPLETE INDICATIONS: PAIN; HX AAA TECHNIQUE: Real-time scanning was performed of the abdominal and retroperitoneal organs, with image documentation. COMPARISON: [facility], CT, CT ABDOMEN PELVIS W CON, 09/17/2018, 8:37. FINDINGS: Liver: Visualized is normal in size and homogeneous in echotexture. Left lobe the liver is obscured by bowel gas and cannot be evaluated. Gallbladder: Gallbladder is surgically absent. Biliary ducts: Intrahepatic bile ducts are non-dilated. Extrahepatic bile duct caliber measures 4.5 mm. Normal is 6-7 mm or less in diameter, or 10 mm or less post-cholecystectomy. Pancreas: Visualized portions of the pancreas are sonographically normal. Spleen: Spleen is normal in size and homogeneous in echotexture. Kidneys: Kidneys are normal in size and echotexture. Right kidney measures 11.8 cm long; left kidney measures 12.4 cm long. No hydronephrosis or nephrolithiasis. No solid masses. Aorta: Mid segment of the abdominal aorta measures 2.9 x 3.3 cm Iliacs: Proximal common iliac arteries are normal in caliber at less than 2.5 cm. IVC: Intrahepatic inferior vena cava is patent. Miscellaneous: No free abdominal fluid. IMPRESSION: 1. 2.9 x 2.3 cm abdominal aortic aneurysm. 2. Status post cholecystectomy. Dictated by: Yin Chacon MD, PhD on 12/23/2019 at 11:48 Approved by: Yin Chacon MD, PhD on 12/23/2019 at 11:52
== END ==
PROVIDERS: PCP Family Medicine; Referring Provider Family Medicine; Visit Provider Family Medicine
DX: R10.9 Unspecified abdominal pain (principal); I71.4 Abdominal aortic aneurysm, without rupture; Z90.49 Acquired absence of other specified parts of digestive tract
CPT/HCPCS: 76700

== ENCOUNTER → 2019-12-25 11:31 | Outpatient (CLI) | payer MEDICARE, OTHER, SELFPAY ==
[2018-07-23 02:36] VITALS: BMI 27.5
--- NOTE | 2019-12-25 12:29 | DI.CT.S_ITS ---
PROCEDURE: CT ABDOMEN PELVIS WO/W CON INDICATIONS: asymptomatic microscopic hematuria, dysuria TECHNIQUE: Optional 5 mm thick noncontrast images acquired from the diaphragm to the symphysis pubis. After the administration of intravenous contrast, 5 mm thick images acquired from the diaphragm to the symphysis pubis after a 10-minute delay. 2 mm thick coronal and sagittal reformats were then performed of the kidneys and ureters. For radiation dose reduction, the following was used: automated exposure control, adjustment of mA and/or kV according to patient size. COMPARISON: [facility], CT, CT ABDOMEN PELVIS W CON, 09/17/2018, 8:37. FINDINGS: Image quality: Excellent. Lung bases: Posterior dependent scarring/atelectasis in the visualized lung bases. Heart size is normal. Coronary artery calcifications are present. Urinary system: No hydronephrosis identified. No urolithiasis seen. Bilateral subcentimeter renal lesions, statistically cysts however technically too small to characterize accurately. No intraluminal filling defects present. The bladder is partially collapsed otherwise unremarkable. There is possible mild circumferential mural thickening although this could be due to decompressed status. Other solid organs: Liver is normal in size and enhancement. Gallbladder surgically absent. Biliary system is non dilated. Pancreas enhances normally. Spleen is normal in size and enhancement. No adrenal nodules. Peritoneum and bowel: Colonic diverticulosis is seen without evidence of acute complication. No free fluid or air. Appendix is not clearly identified however no suspicious pericecal inflammatory changes are seen. It may be surgically absent. Nodes and vessels: No retroperitoneal or mesenteric adenopathy by size criteria. Redemonstration of mild midabdominal aortic aneurysm, grossly unchanged since 09/17/18. 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 Pelvis: No pathologic free pelvic fluid. Bilateral small fat containing inguinal hernias. Bones: No suspicious bony lesions. No vertebral body compression fractures. Diffuse spondylitic change and facet arthropathy IMPRESSION: No urolithiasis. No evidence of urinary obstruction. Partially collapsed bladder. Technically cannot exclude some degree of circumferential mural thickening however suboptimal evaluation given degree of decompression. If clinically warranted, cystoscopy can be performed for further assessment. Incidental colonic diverticulosis. Coronary artery disease Additional chronic and incidental findings as above. Dictated by: Michael Jacques M.D. on 12/25/2019 at 13:07 Approved by: Michael Jacques M.D. on 12/25/2019 at 13:18
== END ==
PROVIDERS: PCP Family Medicine; Referring Provider Family Medicine; Visit Provider Family Medicine
DX: R31.21 Asymptomatic microscopic hematuria (principal); R30.0 Dysuria; K57.90 Diverticulosis of intestine, part unspecified, without perforation or abscess without bleeding; I25.10 Atherosclerotic heart disease of native coronary artery without angina pectoris; I72.3 Aneurysm of iliac artery; K40.20 Bilateral inguinal hernia, without obstruction or gangrene, not specified as recurrent
CPT/HCPCS: 74178; Q9967

== ENCOUNTER → 2020-01-12 15:37 | Outpatient (CLI) | payer MEDICARE, OTHER, SELFPAY ==
[2018-07-23 02:36] VITALS: BMI 27.5
== END ==
PROVIDERS: PCP Family Medicine; Visit Provider Specialist
DX: R31.9 Hematuria, unspecified (principal)
CPT/HCPCS: 81002; 87086; 99214

== ENCOUNTER → 2021-01-04 12:04 | Outpatient (CLI) | payer MEDICARE, OTHER, SELFPAY ==
[2020-01-12 15:55] VITALS: BMI 27.5
--- NOTE | 2021-01-04 12:06 | DI.US.S_ITS ---
PROCEDURE: US RETRO PERITONEAL LIMITED INDICATIONS: Abdominal aortic aneurysm, without rupture TECHNIQUE: Real time scanning was performed of the aorta and iliac arteries, with image documentation. COMPARISON: None. FINDINGS: Aorta: Proximal aortic diameter could not be measured due to overlying bowel gas.. Mid-aorta measures 3.4 maximal diameter Distal aortic diameter is 2.2 cm maximal diameter. Iliac arteries: Right common iliac artery measures 1.3 cm. Left common iliac artery measures 0.7 cm. IMPRESSION: Proximal aorta could not be seen due to prominent bowel gas. The middle and distal thirds of the aorta show no significant change in caliber of the aorta through these areas. The iliac arteries are normal in caliber. There is a persistent stable mild area of aneurysmal dilatation at the middle 3rd of the aorta. Dictated by: Bert Tatum M.D. on 01/04/2021 at 14:17 Approved by: Bert Tatum M.D. on 01/04/2021 at 14:21
== END ==
PROVIDERS: PCP Family Medicine; Referring Provider Family Medicine; Visit Provider Family Medicine
DX: I71.4 Abdominal aortic aneurysm, without rupture (principal)
CPT/HCPCS: 76775

== ENCOUNTER → 2021-12-19 09:46 | Outpatient (CLI) | payer MEDICARE, OTHER, SELFPAY ==
[2020-01-12 15:55] VITALS: BMI 27.5
--- NOTE | 2021-12-19 | DI.RAD.S_ITS ---
PROCEDURE: XR FOOT LT MIN 3V INDICATIONS: Pain in left foot TECHNIQUE: 3 views of the foot were acquired. COMPARISON: None. FINDINGS: Bones: No acute fracture or dislocation. Moderate degenerative changes are present at the 1st MTP joint. A subtle lucency is present at the distal medial left 1st proximal phalanx suggesting subchondral cystic change. Soft tissues: No tibiotalar joint effusion. Achilles tendon appears normal. 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 Dictated by: Destini Laguna M.D. on 12/19/2021 at 11:12 Approved by: Destini Laguna M.D. on 12/19/2021 at 11:13
== END ==
PROVIDERS: PCP Family Medicine; Referring Provider Family Medicine; Visit Provider Family Medicine
DX: M79.672 Pain in left foot (principal); M19.072 Primary osteoarthritis, left ankle and foot
CPT/HCPCS: 73630

== ENCOUNTER → 2023-04-29 08:32 | Outpatient (CLI) | payer MEDICARE, OTHER, SELFPAY ==
[2020-01-12 15:55] VITALS: BMI 27.5
--- NOTE | 2023-04-29 | DI.US.S_ITS ---
PROCEDURE: US RETRO PERITONEAL LIMITED INDICATIONS: ABDOMINAL AORTIC ANEURYSM, WITHOUT RUPTURE, UNSPECIFIED TECHNIQUE: Real time scanning was performed of the aorta and iliac arteries, with image documentation. COMPARISON: [facility], CT, CT ABDOMEN PELVIS WO/W CON, 12/25/2019, 12:25. [facility], US, US RETRO PERITONEAL LIMITED, 01/04/2021, 12:18. FINDINGS: Aorta: Proximal aortic is not well seen. Mid-aorta measures 4 cm. (Previously 3.5 cm on ultrasound 01/04/2021). Distal aortic diameter is 1.8 cm. (Previously 2.2 cm). Iliac arteries: Right common iliac artery measures 1.3 cm. (Previously 1.3 cm). Left common iliac artery measures 1.2 cm. (Previously 0.7 cm). IMPRESSION: Mid abdominal aortic aneurysm measuring 4 cm is mildly increased in size compared to ultrasound from 2020. Recommend follow-up ultrasound in 1 year. Dictated by: Danis Vance M.D. on 04/29/2023 at 10:36 Approved by: Danis Vance M.D. on 04/29/2023 at 10:45
== END ==
PROVIDERS: PCP Family Medicine; Referring Provider Family Medicine; Visit Provider Family Medicine
DX: I71.40 Abdominal aortic aneurysm, without rupture, unspecified (principal)
CPT/HCPCS: 76775

== ENCOUNTER 2023-09-12 13:37 | Emergency (ER) | payer MEDICARE, OTHER, SELFPAY ==
[2020-01-12 15:55] VITALS: BMI 27.5
[2023-09-12] VITALS (11 sets, daily range): BP systolic 117–136; BP diastolic 65–73; PULSE 78–92; RESP 16–21; TEMP 36.5; O2SAT 89–95; BMI 26.2
--- NOTE | 2023-09-12 13:58 | DI.RAD.S_ITS ---
PROCEDURE: XR CHEST 1V INDICATIONS: chest pain TECHNIQUE: One view of the chest was acquired. COMPARISON: [facility], CR, XR CHEST 1V, 07/23/2018, 2:05. FINDINGS: Surgical changes and devices: Stable median sternotomy wires and cholecystectomy clips. Lungs and pleura: Lungs are clear. No pleural effusions or pneumothorax. Mediastinum: Mediastinal contours appear normal. Heart size is normal. Bones and chest wall: No suspicious bony lesions. Overlying soft tissues appear unremarkable. IMPRESSION: No acute cardiopulmonary abnormality is seen. Dictated by: Yin Chacon MD, PhD on 09/12/2023 at 14:35 Approved by: Yin Chacon MD, PhD on 09/12/2023 at 14:35
[2023-09-12 14:35] LABS: Add Manual Diff / Slide Review NO; Basophils Absolute Auto 0 /uL (0-100); Basophils Percent Auto 0.4 % (0-2); Eosinophils Absolute Auto 100 /uL (0-450); Eosinophils Percent Auto 1.6 % (2-4); Hematocrit 50.6 % (41-53); Hemoglobin 17.1 g/dL (13.5-17.5); Lymphocytes Absolute Auto 1700 /uL (1100-4500); Lymphocytes Percent Auto 20.5 % (25-40); Mean Corpuscular HGB Conc 33.8 % (30-36); Mean Corpuscular Hemoglobin 29.5 PG (26-34); Mean Corpuscular Volume 87.4 fL (80-100); Monocytes Absolute Auto 1000 /uL (0-900); Monocytes Percent Auto 12.4 % (3-14); Neutrophils Absolute Auto 5500 /uL (1500-7000); Neutrophils Percent Auto 65.1 % (50-75); Platelet Count 307 X10^3/uL (150-400); Red Blood Cell Count 5.79 X10^6/uL (4.5-5.9); Red Cell Distribution Width 12.5 % (11.6-14.8); White Blood Cell Count 8.4 X10^3/uL (4.5-11.0)
[2023-09-12 14:39] LABS: INR 1.1 (0.9-1.3); Prothrombin Time 13.1 SECONDS (9.4-12.5)
[2023-09-12 14:42] LABS: PTT Partial Thromboplastin Tim 35 SECONDS (25.1-36.5)
[2023-09-12 14:51] LABS: Alanine Aminotransferase 42 IU/L (<50); Albumin 4.3 g/dL (3.5-5.0); Alkaline Phosphatase 77 U/L (38-126); Aspartate Aminotransferase 44 IU/L (17-59); BUN Creatinine Ratio 15.5 (6-22); Bilirubin Total 0.8 mg/dL (0.2-1.3); Blood Urea Nitrogen 11 mg/dL (9-20); Calcium 9.3 mg/dL (8.4-10.2); Carbon Dioxide 30 mmol/L (22-32); Chloride 96 mmol/L (98-107); Creatine Kinase 65 U/L (55-170); Estimated Glomerular Filt Rate > 60 mL/min (>60); Globulin 4.1 g/dL (1.7-4.1); Glucose 81 mg/dL (80-110); HEMOLYSIS 22 (0-50); Lipase 77 U/L (23-300); Magnesium 1.9 mg/dL (1.6-2.3); Potassium 4.3 mmol/L (3.4-5.1); Sodium 133 mmol/L (137-145); Total Protein 8.4 g/dL (6.3-8.2)
[2023-09-12 15:01] LABS: Troponin I < 0.012 ng/mL (0.01-0.034)
--- NOTE | 2023-09-12 15:06 | ED_ITS ---
HPI - Dizziness General Chief Complaint: Dizziness Stated Complaint: exhausted, cough Time Seen by Provider: 09/12/23 15:05 Source: patient Mode of arrival: Ambulatory History of Present Illness HPI Narrative: Patient 77-year-old male history of coronary artery disease with 4 vessel CABG hyperlipidemia presenting today with increased fatigue. He reports that he has just been extremely tired he takes multiple naps today. Feels like he just never gets enough sleep. He has had significant decreased appetite, does not report any significant weight loss. This morning he pulled netting off of his pond went back into the house and felt very tired like he needed to take a nap. He denies any fever chills or sore throat. He has no chest pain or shortness of breath. He is noted to be mildly hypoxic with a resting O2 of 91-92%. However nursing reports that when he walked back to his room his oxygen dropped into the 80s. He denies any orthopnea no peripheral edema no prior history of congestive heart failure. Related Data Home Medications Medication Instructions Recorded Confirmed aspirin 81 mg tablet,delayed 81 mg PO DAILY 01/12/20 02/02/20 release (Adult Aspirin Regimen) atorvastatin 40 mg tablet 40 mg PO DAILY 01/12/20 02/02/20 betamethasone dipropionate 0.05 % 1 applictn topical DAILY PRN 01/12/20 02/02/20 topical cream ezetimibe 10 mg tablet 10 mg PO DAILY 01/12/20 02/02/20 ibuprofen 200 mg capsule 200 mg PO Q6H PRN 01/12/20 02/02/20 Previous Rx's Medication Instructions Recorded finasteride 5 mg tablet 5 mg PO DAILY #90 tabs 02/02/20 Allergies Allergy/AdvReac Type Severity Reaction Status Date / Time fentanyl Allergy Insomnia Verified 02/02/20 09:12 Patient History Medical History (Updated 09/12/23 @ 18:32 by Marcia Howe DO) Personal history of urinary calculi Erectile dysfunction BPH w urinary obs/LUTS Hematuria Ischemic heart disease Obstructive sleep apnea of adult Snoring Surgical History S/P CABG x 5 Social History household members: spouse Smoking Status: Former smoker alcohol intake: current Smoking Status: Former smoker tobacco type: cigars alcohol intake frequency: 0-2 drinks per day Substance Use Type: does not use Exam Initial Vital Signs Initial Vital Signs: Vital Signs Temperature 97.7 F 09/12/23 13:51 Pulse Rate 83 09/12/23 13:51 Respiratory Rate 18 09/12/23 13:51 Blood Pressure 118/73 09/12/23 13:51 Pulse Oximetry 93 09/12/23 13:51 Oxygen Delivery Method Room Air 09/12/23 13:51 GENERAL: Alert pleasant well-appearing 77-year-old male and in no acute distress. HEENT: Head atraumatic,EOMI, pupils reactive, face symmetric, moist mucous membranes CARDIOVASCULAR: Regular rate and rhythm without murmurs, rubs or gallops. RESPIRATORY: Breath sounds equal bilaterally, no wheezes rales or rhonchi. ABDOMEN: Soft, nontender. Normoactive bowel sounds all 4 quadrants. No guarding or rebound. EXTREMITIES: Normal range of motion, no clubbing or edema. Neurovascularly intact NEUROLOGICAL: Alert and oriented x4.Normal gait and speech. SKIN: Warm, dry, no laceration, no petechiae, no rashes or lesions. Course Orders Ordered: Discontinued Medications Aspirin (Aspirin 81 Mg Chew Tab) 324 mg PO NOW ONE Stop: 09/12/23 13:59 Last Admin: 09/12/23 16:13 Dose: Not Given Documented By: BOSSMAN Vital Signs Vital signs: Vital Signs - 8 hr 09/12/23 13:51 09/12/23 14:06 09/12/23 14:30 Temperature 97.7 F Pulse Rate 83 80 79 Respiratory Rate 18 16 20 Blood Pressure 118/73 Pulse Oximetry 93 89 L 92 Oxygen Delivery Method Room Air Room Air 09/12/23 14:30 09/12/23 15:00 09/12/23 15:00 Temperature Pulse Rate 80 Respiratory Rate 21 Blood Pressure 136/65 134/72 Pulse Oximetry 91 Oxygen Delivery Method 09/12/23 15:30 09/12/23 15:30 09/12/23 16:00 Temperature Pulse Rate 84 78 Respiratory Rate 20 20 Blood Pressure 129/72 Pulse Oximetry 91 91 Oxygen Delivery Method Room Air 09/12/23 16:00 09/12/23 16:30 09/12/23 17:00 Temperature Pulse Rate 78 80 Respiratory Rate 20 20 Blood Pressure 117/68 Pulse Oximetry 95 92 Oxygen Delivery Method MDM - Dizziness Lab Data 09/12/23 14:10 09/12/23 14:10 Labs: Lab Results 09/12/23 09/12/23 09/12/23 Range/Units 14:10 14:12 17:30 WBC 8.4 (4.5-11.0) X10^3/uL RBC 5.79 (4.5-5.9) X10^6/uL Hgb 17.1 (13.5-17.5) g/dL Hct 50.6 (41-53) % MCV 87.4 (80-100) fL MCH 29.5 (26-34) PG MCHC 33.8 (30-36) % RDW 12.5 (11.6-14.8) % Plt Count 307 (150-400) X10^3/uL Neut % (Auto) 65.1 (50-75) % Lymph % (Auto) 20.5 L (25-40) % [place] % (Auto) 12.4 (3-14) % Eos % (Auto) 1.6 L (2-4) % Baso % (Auto) 0.4 (0-2) % Neut # (Auto) 5500 (6570-6721) /uL Lymph # (Auto) 1700 (8879-4053) /uL [place] # (Auto) 1000 H (0-900) /uL Eos # (Auto) 100 (0-450) /uL Baso # (Auto) 0 (0-100) /uL PT 13.1 H (9.4-12.5) SECONDS INR 1.1 (0.9-1.3) APTT 35 (25.1-36.5) SECONDS D-Dimer 1030 H (<500) ng/ml Sodium 133 L (137-145) mmol/L Potassium 4.3 (3.4-5.1) mmol/L Chloride 96 L (98-107) mmol/L Carbon Dioxide 30 (22-32) mmol/L BUN 11 (9-20) mg/dL Creatinine 0.71 (0.66-1.25) mg/dL Estimated GFR > 60 (>60) mL/min BUN/Creatinine Ratio 15.5 (6-22) Glucose 81 (80-110) mg/dL Calcium 9.3 (8.4-10.2) mg/dL Magnesium 1.9 (1.6-2.3) mg/dL Total Bilirubin 0.8 (0.2-1.3) mg/dL AST 44 (17-59) IU/L ALT 42 (<50) IU/L Alkaline Phosphatase 77 (38-126) U/L Total Creatine Kinase 65 (55-170) U/L Troponin I < 0.012 (0.01-0.034) ng/mL NT-Pro-B Natriuret Pep 217 (<450) pg/mL Total Protein 8.4 H (6.3-8.2) g/dL Albumin 4.3 (3.5-5.0) g/dL Globulin 4.1 (1.7-4.1) g/dL Albumin/Globulin Ratio 1.0 (1.0-2.8) Lipase 77 (23-300) U/L Urine RBC 0-1/hpf (0-5/HPF) Urine WBC 0-1/hpf (0-5/HPF) Ur Squamous Epith Cells 0-1 /hpf (0-5/HPF) Urine Bacteria Occasional (0-1) (None) Ur Culture Indicated? Cult not indicated Vol Urine Centrifuged 10ml (spun) SARS-CoV-2 (PCR) Negative (Negative) Influenza A (RT-PCR) Flu a negative (NEGATIVE) Influenza B (RT-PCR) Flu b negative (NEGATIVE) RSV (PCR) Negative (Negative) Urine Dip Bedside Urine Glucose Negative Bedside Urine Bilirubin - Negative Bedside Urine Ketone +/- 5 Urine Specific [place] 1.010 Bedside Urine Occult Blood +/- Bedside Urine pH 6.0 Bedside Urine Protein - Negative Bedside Urine Urobilinogen - Negative Bedside Urine Nitrite - Negative Bedside Urine Leukocytes - Negative Esterase Imaging Data Chest x-ray: Radiologist's Impression: PROCEDURE: XR CHEST 1V INDICATIONS: chest pain TECHNIQUE: One view of the chest was acquired. COMPARISON: [facility], , XR CHEST 1V, 07/23/2018, 2:05. FINDINGS: Surgical changes and devices: Stable median sternotomy wires and cholecystectomy clips. Lungs and pleura: Lungs are clear. No pleural effusions or pneumothorax. Mediastinum: Mediastinal contours appear normal. Heart size is normal. Bones and chest wall: No suspicious bony lesions. Overlying soft tissues appear unremarkable. IMPRESSION: No acute cardiopulmonary abnormality is seen. Dictated by: Yin Chacon MD, PhD on 09/12/2023 at 14:35 CT scan - chest: Radiologist's Impression: PROCEDURE: CT ANGIO CHEST PE PROTOCOL INDICATIONS: elevated dimer and hypoxia TECHNIQUE: After the administration of intravenous contrast, 2 mm thick sections acquired from the pulmonary apices to the posterior costophrenic angles. 3-dimensional maximum intensity projection (MIP) coronal and sagittal reformats were then acquired through the thorax. For radiation dose reduction, the following was used: automated exposure control, adjustment of mA and/or kV according to patient size. COMPARISON: None. FINDINGS: Image quality: Diagnostic. Pulmonary arteries: Pulmonary arteries are normal in size, and demonstrate no intraluminal filling defects to suggest central pulmonary embolism. Lower Neck: No enlarged lymph nodes. Thyroid: No thyroid nodules which require sonographic follow up, per consensus guidelines. Axillae: No enlarged lymph nodes. Chest Wall: Unremarkable. Bones: Decreased osseous mineralization. Degenerative changes of the spine. Median sternotomy wires.. Lungs and Pleura: No pneumothorax or pleural effusions. No consolidation or suspicious nodules. Linear atelectasis versus scarring at the left greater than right lung bases. Few perifissural nodules measuring 3 mm or less, likely intrapulmonary lymph nodes. Heart: Heart size is normal. Severe coronary artery calcifications. Reflux of contrast with into the IVC. No pericardial effusion. 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 Mediastinum and [place]: No enlarged lymph nodes. Esophagus: No wall thickening. No hiatal hernia. Upper Abdomen: Status post cholecystectomy. IMPRESSION: No pulmonary embolus. No acute cardiopulmonary process. Atherosclerotic vascular calcifications with mild anginal dilatation of the proximal aortic arch measuring 4.3 cm. Severe coronary artery calcifications. Reflux of contrast into the IVC, correlate with right heart function. Dictated by: Ryan Umana M.D. on 09/12/2023 at 17:20 ECG Data Attestation: I personally reviewed and interpreted this ECG as follows: Interpretation: Sinus rhythm rate 77 AK interval 164 QRS 88 QTC [address] changes no priors to compare MDM Narrative Medical decision making narrative: Patient 77-year-old male with history of coronary artery disease 4 vessel CABG presenting today with increased fatigue. He is noted to be mildly hypoxic at rest with O2 91-92%. Denies any chest pain or shortness of breath. He has not having any fever. Blood work has been reviewed no leukocytosis or anemia, no electrolyte abnormalities troponin is negative no evidence of congestive heart failure, D- dimer elevated [address] angio does not show any pulmonary embolism, but does show severe coronary calcification chest x-ray negative Patient is noted to be mildly hypoxic but not symptomatic. He is found to have severe coronary artery disease on CT. He has no chest pain. He be having some degree of acute coronary syndrome but has no EKG changes and negative troponin. He ambulated with a pulse ox O2 remained at 97%. Dr. Miller updated patient's symptoms test results may benefit from an outpatient stress test Patient has appointment with pcp in 1 week. Discharge Plan Departure Patient Disposition: Home Clinical Impression: Fatigue Instructions: DI for Fatigue Activity Restrictions/Additional Instructions: *You have been diagnosed with fatigue *What to do: At this time I do strongly recommend that you have a stress test, your PCP will order it. I also recommend that you follow-up with Cardiology *Continue to take medications as directed *Follow up with your primary care provider in 2-3 days or call [phone] See PCP as scheduled next week *Return to ER if you should have increasing shortness of breath chest pain dizziness or any new, worsening or concerning symptoms Prescriptions: No Action ezetimibe 10 mg tablet 10 mg PO DAILY atorvastatin 40 mg tablet 40 mg PO DAILY betamethasone dipropionate 0.05 % cream 1 applictn TOP DAILY PRN ibuprofen 200 mg capsule 200 mg PO Q6H PRN aspirin [Adult Aspirin Regimen] 81 mg tablet,delayed release (DR/EC) 81 mg PO DAILY finasteride 5 mg tablet 5 mg PO DAILY Qty: 90 3RF Referrals: Rex Rice MD [Primary Care Provider] - Stand Alone Forms: Patient Portal/API
[2023-09-12 15:09] LABS: Influenza A - CEPHEID Flu A NEGATIVE (NEGATIVE); Influenza B - CEPHEID Flu B NEGATIVE (NEGATIVE); Respiratory Syncytial Virus Negative (Negative)
[2023-09-12 15:44] LABS: D Dimer 1030 ng/ml (<500)
[2023-09-12 16:02] LABS: COVID-19 CEPHEID 4-PLEX PCR Negative (Negative)
--- NOTE | 2023-09-12 16:06 | DI.CT.S_ITS ---
PROCEDURE: CT ANGIO CHEST PE PROTOCOL INDICATIONS: elevated dimer and hypoxia TECHNIQUE: After the administration of intravenous contrast, 2 mm thick sections acquired from the pulmonary apices to the posterior costophrenic angles. 3-dimensional maximum intensity projection (MIP) coronal and sagittal reformats were then acquired through the thorax. For radiation dose reduction, the following was used: automated exposure control, adjustment of mA and/or kV according to patient size. COMPARISON: None. FINDINGS: Image quality: Diagnostic. Pulmonary arteries: Pulmonary arteries are normal in size, and demonstrate no intraluminal filling defects to suggest central pulmonary embolism. Lower Neck: No enlarged lymph nodes. Thyroid: No thyroid nodules which require sonographic follow up, per consensus guidelines. Axillae: No enlarged lymph nodes. Chest Wall: Unremarkable. Bones: Decreased osseous mineralization. Degenerative changes of the spine. Median sternotomy wires.. Lungs and Pleura: No pneumothorax or pleural effusions. No consolidation or suspicious nodules. Linear atelectasis versus scarring at the left greater than right lung bases. Few perifissural nodules measuring 3 mm or less, likely intrapulmonary lymph nodes. Heart: Heart size is normal. Severe coronary artery calcifications. Reflux of contrast with into the IVC. No pericardial effusion. 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 Mediastinum and [place]: No enlarged lymph nodes. Esophagus: No wall thickening. No hiatal hernia. Upper Abdomen: Status post cholecystectomy. IMPRESSION: No pulmonary embolus. No acute cardiopulmonary process. Atherosclerotic vascular calcifications with mild anginal dilatation of the proximal aortic arch measuring 4.3 cm. Severe coronary artery calcifications. Reflux of contrast into the IVC, correlate with right heart function. Dictated by: Ryan Umana M.D. on 09/12/2023 at 17:20 Approved by: Ryan Umana M.D. on 09/12/2023 at 17:26
[2023-09-12 16:11] LABS: NT-proBNP (BNP-Adult 18+) 217 pg/mL (<450)
[2023-09-12 17:48] LABS: Bacteria Urine Occasional (0-1); Culture Indicated Urine Cult Not Indicated; RBC Urine 0-1/HPF (0-5/HPF); Squamous Epithelial Cell Urine 0-1 /HPF (0-5/HPF); Urine Volume 10mL (spun); WBC Urine 0-1/HPF (0-5/HPF)
== END 2023-09-12 18:50 | disposition home or self-care (01) ==
PROVIDERS: Emergency Provider Emergency Medicine; PCP Family Medicine
DX: R53.83 Other fatigue (principal); R09.02 Hypoxemia; R07.9 Chest pain, unspecified; R79.89 Other specified abnormal findings of blood chemistry; Z20.822 Contact with and (suspected) exposure to COVID-19
CPT/HCPCS: 0241U; 36415; 71045; 71275; 80053; 81003; 81015; 82550; 83690; 83735; 83880; 84484; 85025; 85379; 85610; 85730; 93005; 99284; Q9967

== ENCOUNTER → 2024-10-14 12:20 | Outpatient (CLI) | payer MEDICARE, OTHER, SELFPAY ==
[2020-01-12 15:55] VITALS: BMI 27.5
--- NOTE | 2024-10-14 12:23 | DI.RAD.S_ITS ---
PROCEDURE: XR KNEE LT 3V INDICATIONS: KNEE PAIN TECHNIQUE: 3 views of the knee were acquired. COMPARISON: None. FINDINGS AND IMPRESSION: Mild overall arthrosis. Mild patellar enthesopathy. There is slight lateral patellar tilt. Small joint effusion. Dystrophic calcifications seen projecting over the extensor mechanism. Vascular calcifications also present. Possible old deformity of the proximal fibular shaft. If there is high concern for further derangement, consider MRI evaluation. Dictated by: Henrik Chen M.D. on 10/14/2024 at 16:43 Approved by: Henrik Chen M.D. on 10/14/2024 at 16:44
== END ==
PROVIDERS: PCP Family Medicine; Referring Provider Family Medicine; Visit Provider Family Medicine
DX: M17.12 Unilateral primary osteoarthritis, left knee (principal); M25.462 Effusion, left knee; M25.562 Pain in left knee
CPT/HCPCS: 73562

== ENCOUNTER → 2024-10-30 16:29 | Outpatient (CLI) | payer MEDICARE, OTHER, SELFPAY ==
[2020-01-12 15:55] VITALS: BMI 27.5
[2024-10-30 18:02] LABS: Creatinine Urine Random 146.15 mg/dL
[2024-10-31 23:07] LABS: Microalbumin Urine Random 9.7 mg/dL (0-1.6)
== END ==
PROVIDERS: PCP Family Medicine; Referring Provider Student in an Organized Health Care Education/Training Program; Visit Provider Student in an Organized Health Care Education/Training Program
DX: E78.01 Familial hypercholesterolemia (principal)
CPT/HCPCS: 82043; 82570; 84156